=== PATIENT | male | born 1945 | race Caucasian/White ===

== ENCOUNTER 2017-02-20 12:36 | Emergency (ER) | payer MEDICARE, BC ==
[2017-02-20 12:52] VITALS: BP 116/79
[2017-02-20] MEDS ORDERED: DIPH/PERTUSS(ACELL)/TETANUS VAC/PF 0.5 ML SYR (>=10YO) IM ONE (12:59)
--- NOTE | 2017-02-20 13:02 | ER Document Report ---
ED Medical Screen (RME) - General Chief Complaint: Fall Stated Complaint: FALL/HEAD INJURY Time Seen by Provider: 02/20/17 12:59 Mode of Arrival: Wheelchair Information source: Patient TRAVEL OUTSIDE OF THE [place] IN LAST 30 DAYS: No - HPI Patient complains to provider of: fall/hit head Onset: Just prior to arrival - pt slipped earlier today and hit head -- no LOC. Takes ASA q day - Related Data Allergies/Adverse Reactions: No Known Allergies Allergy (Unverified 02/20/17 12:41) Past Medical History Renal/ Medical History: Denies: Hx Peritoneal Dialysis Physical Exam - Vital signs Vitals: Temp Pulse Resp BP Pulse Ox 98.6 F 91 20 116/79 94 02/20/17 12:42 02/20/17 12:42 02/20/17 12:42 02/20/17 12:42 02/20/17 12:42 Course - Vital Signs Vital signs: Temp Pulse Resp BP Pulse Ox 98.6 F 91 20 116/79 94 02/20/17 12:42 02/20/17 12:42 02/20/17 12:42 02/20/17 12:42 02/20/17 12:42
--- NOTE | 2017-02-20 13:50 | RADIOLOGY REPORT (SQ) ---
EXAM DESCRIPTION: CT HEAD WITHOUT COMPLETED DATE/TIME: 02/20/2017 1:18 pm REASON FOR STUDY: fall/ hit head COMPARISON: MRI from 06/07/2008 TECHNIQUE: Axial images acquired through the brain without intravenous contrast. Images reviewed wi th bone, brain and subdural windows. Images stored on PACS. All CT scanners at this facility use dose modulation, iterative reconstruction, and/or weight based d osing when appropriate to reduce radiation dose to as low as reasonably achievable (ALARA). [facility]: Dose Right [facility]: CareDose [facility]: Dose Right [facility]: Teradose 4D [facility]: Uberpong RADIATION DOSE: Up-to-date CT equipment and radiation dose reduction techniques were employed. CTDIv ol: 64.6 mGy. DLP: 1163 mGy-cm. mGy. LIMITATIONS: None. FINDINGS: VENTRICLES: Prominent. CEREBRUM: No masses. No hemorrhage. No midline shift. Areas of low density in the white matter mos t likely due to chronic micro-vascular ischemic change. No evidence for acute infarction. CEREBELLUM: No masses. No hemorrhage. Stable areas of chronic infarction. No evidence for acute in farction. EXTRAAXIAL SPACES: Mild age-related involutional change. No fluid collections. No masses. ORBITS AND GLOBE: No intra- or extraconal masses. Normal contour of globe without masses. CALVARIUM: No fracture. PARANASAL SINUSES: Small mucous retention cyst right sphenoid sinus. Otherwise clear. SOFT TISSUES: Soft tissue swelling left frontal scalp. OTHER: No other significant finding. IMPRESSION: SOFT TISSUE INJURY WITHOUT FRACTURE OR ACUTE INTRACRANIAL PROCESS IDENTIFIED. EVIDENCE OF ACUTE STROKE: NO. TECHNICAL DOCUMENTATION: JOB ID: [id number] Quality ID # [id number]: Final reports with documentation of one or more dose reduction techniques (e.g., Au tomated exposure control, adjustment of the mA and/or kV according to patient size, use of iterative reconstruction technique) 2010 [email or web address]- All Rights Reserved
[2017-02-20] MEDS ORDERED: LIDOCAINE 1% INJ-PF (10 MG/ML) 30 ML SDV INJ ONE (14:09)
[2017-02-20] MEDS ORDERED: BUPIVACAINE HCL 0.5 % INJ/PF 30 ML SDV INJ ONE (14:40)
--- NOTE | 2017-02-20 15:47 | ER Document Report ---
ED General - General Chief Complaint: Fall Stated Complaint: FALL/HEAD INJURY Time Seen by Provider: 02/20/17 12:59 Mode of Arrival: Wheelchair TRAVEL OUTSIDE OF THE [place] IN LAST 30 DAYS: No - HPI Patient complains to provider of: Fall head injury Notes: Patient coming in after falling over when he was bending over patient hit his head on cement. Denies any loss of consciousness. Patient has obvious abrasion and skin defect to his forehead. Denies any pain at this time. Patient is on Plavix. Resting comfortably no signs of any obvious distress - Related Data Allergies/Adverse Reactions: No Known Allergies Allergy (Unverified 02/20/17 12:41) Past Medical History - General Information source: Patient - Social History Smoking Status: Never Smoker Chew tobacco use (# tins/day): No Frequency of alcohol use: None Drug Abuse: None Family History: Reviewed & Not Pertinent Patient has suicidal ideation: No Patient has homicidal ideation: No Renal/ Medical History: Denies: Hx Peritoneal Dialysis Past Surgical History: Reports: Hx Orthopedic Surgery Review of Systems - Review of Systems Constitutional: Other - Abrasion laceration EENT: No symptoms reported Cardiovascular: No symptoms reported Respiratory: No symptoms reported Gastrointestinal: No symptoms reported Genitourinary: No symptoms reported Male Genitourinary: No symptoms reported Musculoskeletal: No symptoms reported Skin: No symptoms reported Hematologic/Lymphatic: No symptoms reported Neurological/Psychological: No symptoms reported Physical Exam - Vital signs Vitals: Temp Pulse Resp BP Pulse Ox 98.6 F 91 20 116/79 94 02/20/17 12:42 02/20/17 12:42 02/20/17 12:42 02/20/17 12:42 02/20/17 12:42 Interpretation: Normal - General General appearance: Appears well, Alert - HEENT Head: Normocephalic, Other - Abrasions to the forehead with a skin defect above the left eyebrow Eyes: Normal Pupils: PERRL - Respiratory Respiratory status: No respiratory distress Chest status: Nontender Breath sounds: Normal Chest palpation: Normal - Cardiovascular Rhythm: Regular Heart sounds: Normal auscultation Murmur: No - Abdominal Inspection: Normal Distension: No distension Bowel sounds: Normal Tenderness: Nontender Organomegaly: No organomegaly - Back Back: Normal, Nontender - Extremities General upper extremity: Normal inspection, Nontender, Normal color, Normal ROM , Normal temperature General lower extremity: Normal inspection, Nontender, Normal color, Normal ROM , Normal temperature, Normal weight bearing. No: Ellen's sign - Neurological Neuro grossly intact: Yes Cognition: Normal Orientation: AAOx4 Butler Coma Scale Eye Opening: Spontaneous Cristel Coma Scale Verbal: Oriented Butler Coma Scale Motor: Obeys Commands Butler Coma Scale Total: 15 Speech: Normal Motor strength normal: LUE, RUE, LLE, RLE Sensory: Normal - Psychological Associated symptoms: Normal affect, Normal mood - Skin Skin Temperature: Warm Skin Moisture: Dry Skin Color: Normal Course - Re-evaluation Re-evalutation: 02/20/17 15:58 Abrasions were cleaned head CT is negative. 3 sutures were placed in the skin defect patient is encouraged follow-up primary care physician keep the wound clean and covered with Neosporin will discharge home. - Vital Signs Vital signs: Temp Pulse Resp BP Pulse Ox 98.6 F 91 20 116/79 94 02/20/17 12:42 02/20/17 12:42 02/20/17 12:42 02/20/17 12:42 02/20/17 12:42 Procedures - Laceration/Wound Repair Head Wound length (cm): 3 Wound's Depth, Shape: Other - Circular defect with a linear component above the left eyebrow Laceration pre-procedure: Sterile PPE donned, Sterile drapes applied, Shur- Clens applied Anesthetic type: 0.5% Bupivacaine Volume Anesthetic (mLs): 8 - With 1% lidocaine Wound explored: Clean Irrigated w/ Saline (mLs): 1,000 Wound Repaired With: Sutures Suture Size/Type: 5:0, Prolene Number of Sutures: 3 Post-procedure NV exam normal: Yes Complications: No Adult Head Front/Back picture: 1 - Circular defect with a linear component shaped like a comma Discharge - Discharge Clinical Impression: Multiple forehead abrasions Forehead laceration Qualifiers: Encounter type: initial encounter Qualified Code(s): S01.81XA - Laceration without foreign body of other part of head, initial encounter Condition: Good Disposition: HOME, SELF-CARE Instructions: Laceration Care ([facility]), Tetanus Immunization Given ([facility]), Abrasions of the Face ([facility]) Additional Instructions: Please have your sutures removed in 5-[address] to place antibiotic ointment over the abrasions and laceration. You may return to the ER to have yourr sutures removed or your primary care physician may remove your sutures as well Referrals: BRYAN DYE MD [Primary Care Provider] - Follow up as needed
== END 2017-02-20 16:11 | disposition home or self-care (01) ==
LOC: ER 12:36
PROC: 0HQ1XZZ Repair Face Skin, External Approach (ICD-10-PCS; principal; 2017-02-20)
DX: S01.81XA Laceration without foreign body of other part of head, initial encounter (principal); S00.81XA Abrasion of other part of head, initial encounter; W19.XXXA Unspecified fall, initial encounter
CPT/HCPCS: 99283; 90471; 70450; 90715; 12013; J3490

== ENCOUNTER 2017-02-26 08:36 | Emergency (ER) | payer MEDICARE, BC ==
[2017-02-26 08:42] VITALS: BP 126/73
--- NOTE | 2017-02-26 09:40 | ER Document Report ---
ED Suture/Wound Recheck - General Chief Complaint: Suture Removal Stated Complaint: WOUND CHECK Time Seen by Provider: 02/26/17 08:51 TRAVEL OUTSIDE OF THE [place] IN LAST 30 DAYS: No - Related Data Allergies/Adverse Reactions: No Known Allergies Allergy (Verified 02/26/17 08:42) Past Medical History - Social History Smoking Status: Unknown if Ever Smoked Chew tobacco use (# tins/day): No Frequency of alcohol use: None Drug Abuse: None Family History: Reviewed & Not Pertinent Patient has suicidal ideation: No Patient has homicidal ideation: No Renal/ Medical History: Denies: Hx Peritoneal Dialysis Past Surgical History: Reports: Hx Orthopedic Surgery Physical Exam - Vital signs Vitals: Temp Pulse Resp BP Pulse Ox 98.3 F 86 18 126/73 H 94 02/26/17 08:38 02/26/17 08:38 02/26/17 08:38 02/26/17 08:38 02/26/17 08:38 Course - Vital Signs Vital signs: Temp Pulse Resp BP Pulse Ox 98.3 F 86 18 126/73 H 94 02/26/17 08:38 02/26/17 08:38 02/26/17 08:38 02/26/17 08:38 02/26/17 08:38 Discharge - Discharge Clinical Impression: Visit for suture removal Condition: Stable Disposition: HOME, SELF-CARE Instructions: Suture Removal Additional Instructions: Please follow-up with your doctor this week. Please return if you have any further concerns.
--- NOTE | 2017-02-26 11:20 | ER Document Report ---
ED Suture/Wound Recheck - General Mode of Arrival: Wheelchair Information source: Patient TRAVEL OUTSIDE OF THE [place] IN LAST 30 DAYS: No <DONG ENCINAS - Last Filed: 02/26/17 11:18> <DANNY COULTER - Last Filed: 02/26/17 16:14> - General Chief Complaint: Suture Removal Stated Complaint: WOUND CHECK Time Seen by Provider: 02/26/17 08:51 Notes: Patient is a 72-year-old male who presents to the emergency department today for suture removal. Patient fell 6 days ago hitting his head on concrete. Wound is well-healed. (DONG ENCINAS) - Related Data Allergies/Adverse Reactions: No Known Allergies Allergy (Verified 02/26/17 08:42) Past Medical History - General Information source: Patient - Social History Smoking Status: Unknown if Ever Smoked Cigarette use (# per day): No Chew tobacco use (# tins/day): No Frequency of alcohol use: None Drug Abuse: None Lives with: Family Family History: Reviewed & Not Pertinent Patient has suicidal ideation: No Patient has homicidal ideation: No - Medical History Medical History: Negative Past Surgical History: Reports: Hx Orthopedic Surgery <DONG ENCINAS - Last Filed: 02/26/17 11:18> Review of Systems - Review of Systems Constitutional: No symptoms reported EENT: No symptoms reported Cardiovascular: No symptoms reported Respiratory: No symptoms reported Gastrointestinal: No symptoms reported Genitourinary: No symptoms reported Male Genitourinary: No symptoms reported Musculoskeletal: No symptoms reported Skin: See HPI, Other - laceration to left forehead Hematologic/Lymphatic: No symptoms reported Neurological/Psychological: No symptoms reported -: Yes All other systems reviewed and negative <DONG ENCINAS - Last Filed: 02/26/17 11:18> Physical Exam <DONG ENCINAS - Last Filed: 02/26/17 11:18> - Vital signs Interpretation: Normal - General General appearance: Appears well, Alert - HEENT Head: Normocephalic Eyes: Normal Pupils: PERRL - Respiratory Respiratory status: No respiratory distress Chest status: Nontender Breath sounds: Normal Chest palpation: Normal - Cardiovascular Rhythm: Regular Heart sounds: Normal auscultation Murmur: No - Abdominal Inspection: Normal Distension: No distension Bowel sounds: Normal Tenderness: Nontender Organomegaly: No organomegaly - Back Back: Normal, Nontender - Extremities General upper extremity: Normal inspection, Nontender, Normal color, Normal ROM , Normal temperature General lower extremity: Normal inspection, Nontender, Normal color, Normal ROM , Normal temperature, Normal weight bearing. No: Ellen's sign - Neurological Neuro grossly intact: Yes Cognition: Normal Orientation: AAOx4 Cristel Coma Scale Eye Opening: Spontaneous Cristel Coma Scale Verbal: Oriented [place] Coma Scale Motor: Obeys Commands [place] Coma Scale Total: 15 Speech: Normal Motor strength normal: LUE, RUE, LLE, RLE Sensory: Normal - Psychological Associated symptoms: Normal affect, Normal mood - Skin Skin Temperature: Warm Skin Moisture: Dry Skin Color: Normal <DANNY COULTER - Last Filed: 02/26/17 16:14> - Vital signs Vitals: Temp Pulse Resp BP Pulse Ox 98.3 F 86 18 126/73 H 94 02/26/17 08:38 02/26/17 08:38 02/26/17 08:38 02/26/17 08:38 02/26/17 08:38 - HEENT Notes: Healing abrasion to mid forehead. Healing laceration to area over left eyebrow. No streaking erythema or discharge. [address] Well- healing. (DANNY COULTER) - Vital Signs Vital signs: Temp Pulse Resp BP Pulse Ox 98.3 F 86 18 126/73 H 94 02/26/17 08:38 02/26/17 08:38 02/26/17 08:38 02/26/17 08:38 02/26/17 08:38 Procedures - Additional Procedures suture removal Additional Procedures: Other - 3 sutures removed from left forehead. No bleeding. Tolerated well. <DANNY COULTER - Last Filed: 02/26/17 16:14> Discharge <DONG ENCINAS - Last Filed: 02/26/17 11:18> <DANNY COULTER - Last Filed: 02/26/17 16:14> - Discharge Clinical Impression: Visit for suture removal Condition: Stable Disposition: HOME, SELF-CARE Instructions: Suture Removal Additional Instructions: Please follow-up with your doctor this week. Please return if you have any further concerns. Referrals: BRYAN DYE MD [Primary Care Provider] - Follow up as needed Scribe Attestation: 02/26/17 16:14 I personally performed the services described in the documentation, reviewed and edited the documentation which was dictated to the scribe in my presence, and it accurately records my words and actions. (DANNY COULTER) Scribe Documentation - Scribe Written by Scribe:: Perfecto Ye, 02/26/2017 1120 acting as scribe for :: Perla <DONG ENCINAS - Last Filed: 02/26/17 11:18>
== END 2017-02-26 09:48 | disposition home or self-care (01) ==
LOC: ER 08:36
DX: S01.81XD Laceration without foreign body of other part of head, subsequent encounter (principal); W19.XXXD Unspecified fall, subsequent encounter